=== PATIENT | female | born 1965 | race Hispanic/Latino ===

== ENCOUNTER → 2024-08-29 | Outpatient (CLI) | payer MEDICAID ==
[~2024-08-29] MED LIST: CEPH500B PO; PANT40TA55 PO
== END | disposition home or self-care (01) ==
LOC: RAH 15:58
PROVIDERS: ATTEND Nurse Practitioner Women's Health
DX: Z12.31 Encounter for screening mammogram for malignant neoplasm of breast (principal)
CPT/HCPCS: 77067